=== PATIENT | male | born 1975 | race Caucasian/White ===

== ENCOUNTER → 2018-02-02 | Outpatient (CLI) | payer BC ==
--- NOTE | 2018-02-02 09:32 | Diagnostic Imaging Report ---
INDICATION: Hypogonadism. TECHNIQUE: Multiple Real-time grayscale images were obtained over the scrotum in various projections bilaterally. Color Doppler images were also obtained. FINDINGS: The right testicle measures 4.5 x 2.3 x 3 cm. The left testicle measures 3.9 x 2.1 x 3.1 cm. Both testicles demonstrate homogeneous echogenicity and normal blood flow. There is no evidence of a discrete testicular mass. The epididymides are unremarkable. There are small bilateral hydroceles. IMPRESSION: Small bilateral hydroceles; otherwise, unremarkable scrotal ultrasound. Dictated by: Dictated on workstation # [id number]
== END ==
LOC: RAD 08:29
PROVIDERS: ATTEND Urology
DX: N43.3 Hydrocele, unspecified (principal); E29.1 Testicular hypofunction
CPT/HCPCS: 76870

== ENCOUNTER → 2018-02-09 | Outpatient (CLI) | payer BC ==
[~2018-02-09] MED LIST: GADOBUTROL 15 MMOL/15 ML (GADAVIST) VIAL IV ONE
--- NOTE | 2018-02-09 10:18 | Diagnostic Imaging Report ---
Indication: Preoperative MRI screening. Comparison: None available. Findings and Impression: 1. No periorbital radiopaque foreign body. Dictated by: Dictated on workstation # [id number]
--- NOTE | 2018-02-09 12:40 | Diagnostic Imaging Report ---
PROCEDURE: MR brain and sella with and without contrast. TECHNIQUE: Multiplanar, multisequence MR imaging of the brain was performed with and without contrast. Dedicated dynamic imaging of the sella was performed. INDICATION: Elevated prolactin levels. COMPARISON: None. FINDINGS: The ventricular size and sulcal pattern are normal. There is no sulcal effacement, midline shift, or hemorrhage detected. No diffusion restriction is seen. The normal expected flow voids within the carotid siphons are seen. Images through the sella turcica do demonstrate a rounded T1 hypointense lesion within the anterior and left aspect of the pituitary measuring approximately 7 mm in size. Findings are suggestive of a pituitary microadenoma. The corpus callosum is unremarkable. Sella remains midline. No suprasellar mass is seen. No other abnormal areas of enhancement are detected. 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 No other significant abnormality is seen. Dictated by: Dictated on workstation # [id number]
== END ==
LOC: RAD 08:59
PROVIDERS: ATTEND Urology
DX: E22.1 Hyperprolactinemia (principal)
CPT/HCPCS: 70250; 70553